=== PATIENT | male | born 1995 | race Caucasian/White ===

== ENCOUNTER 2024-12-25 08:53 | Outpatient (REF) | payer OTHER, SELFPAY ==
[2024-12-25 13:51] LABS: MANUAL DIFF FLAG NO
[2024-12-25 14:00] LABS: Hematocrit 41.4 % (42.0-52.0); Hemoglobin 13.9 g/dl (14.0-18.0); Imm Gran Abs Auto 0.02 X10*3/uL (0.00-0.03); Imm Gran Pct Auto 0.4 % (0.0-0.4); Lymphocytes Absolute Auto 2.1 X10*3/uL (1.2-4.9); Mean Corpuscular HGB Conc 33.6 g/dl (31.0-36.0); Mean Corpuscular Hemoglobin 27.9 pg (27.0-33.0); Mean Corpuscular Volume 83.1 fL (80.0-98.0); NRBC Abs Auto 0.000 X10*3/uL (0.0-0.012); NRBC Pct Auto 0.0 /100WBC (0.0-0.2); Platelet Count 236 X10*3/uL (160-400); Red Blood Count 4.98 X10*6/uL (4.60-5.80); White Blood Count 4.6 X10*3/uL (4.8-10.8)
[2024-12-25 14:31] LABS: Alanine Aminotransferase 173 U/L (0-40); Albumin Level 4.6 g/dL (3.5-5.0); Alkaline Phosphatase 74 U/L (39-117); Anion Gap 11 (12-20); Aspartate Amino Transferase 73 U/L (5-37); Blood Urea Nitrogen 15 mg/dL (9-16); Calcium 9.3 mg/dL (8.4-10.2); Carbon Dioxide 28 mmol/L (22-29); Chloride 105 mmol/L (96-108); Cholesterol 197 mg/dL (<200); Estimated Glomerular Filt Rate > 60; HDL Cholesterol 39 mg/dL (>40); Magnesium 2.3 mg/dL (1.6-2.6); Potassium 4.2 mmol/L (3.3-5.1); Sodium 140 mmol/L (135-145); Total Protein 7.2 g/dL (6.5-8.0); Triglycerides 138 mg/dL (<150)
[2024-12-26 04:40] LABS: HBS Num1 1.92 mIU/mL (0-7.99); HBsAGNum1 0.44 S/CO (0.00-0.99); HIV Num 1 0.07 S/CO (0.00-0.99); Hepatitis B Surface Antigen Negative (Negative); ~HepC Num1 0.16 S/CO (0.00-0.79); ~Hepatitis B Surface Antibody NONREACTIVE (Nonreactive); ~Hepatitis C Antibody Nonreactive (Nonreactive)
[2024-12-31 15:38] LABS: VITAMIN D (1,25 OH) D3 44 pg/mL; Vit D (1,25-Dihydroxy) Total 44 pg/mL (18-72); Vitamin D (1,25 OH) D2 <8 pg/mL
== END 2024-12-25 08:54 | disposition home or self-care (01) ==
LOC: HO.HKASLDS 08:53
PROVIDERS: Visit Provider Student in an Organized Health Care Education/Training Program
DX: Z11.4 Encounter for screening for human immunodeficiency virus [HIV] (principal); G25.81 Restless legs syndrome; K21.9 Gastro-esophageal reflux disease without esophagitis; G43.019 Migraine without aura, intractable, without status migrainosus; L30.9 Dermatitis, unspecified
CPT/HCPCS: 36415; 80053; 80061; 82652; 83036; 83735; 84443; 85025; 86706; 86803; 87340; 87389; 99202

== ENCOUNTER 2024-12-25 08:53 | Outpatient (AMB) | payer OTHER, SELFPAY ==
--- NOTE | 2024-12-25 09:03 | MHC.PC.OV ---
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 Policy Cancellation Clerk Required: No Accompanied by: self Allergies No Known Allergies Allergy (Verified 12/25/24 09:04) Tobacco use date assessed: 12/25/24 Dental Screening Dental Screen Date: 12/25/24 Did you have a dental visit in the last 12 months?: Yes Did you have a dental problem in the last 6 months where you did not have access to dental care?: No Was dental information given to patient?: Patient has dentist HPI HPI Comments History of Present Illness Details History of Present Illness The patient is a 29-year-old male presenting with the need to establish care and address medication refills for ongoing health issues. Restless Leg Syndrome: - The patient has a history of Restless Leg Syndrome for which he takes ropinirole 0.25 mg, initially prescribed by his previous primary care physician. - The medication has been effective in managing symptoms, but he requires a prescription refill as he cannot obtain it online or through local clinics without a primary care consultation. Gastroesophageal Reflux Disease (GERD): - The patient experiences heartburn, a condition that runs in his family, and manages it with omeprazole 20 mg. - He requires a prescription refill for omeprazole to continue managing his symptoms effectively. Migraine: - The patient reports a family history of migraines and experiences them himself, sometimes daily, which he currently manages with Excedrin. - He is concerned about the long-term use of Excedrin and has been advised to maintain a migraine journal to identify triggers and patterns. Dermatitis of the Penis: - The patient reports irritation on the penis for the past two to three months, characterized by redness, dryness, and itchiness, which improves with lotion but never fully resolves. - He has not tried antifungal treatments and is concerned about the persistent nature of the condition. Review of Systems - Neurological: Reports migraines, sometimes daily. Denies other neurological symptoms. - Gastrointestinal: Reports heartburn. Denies other gastrointestinal symptoms. - Genitourinary: Reports irritation on the penis with redness, dryness, and itchiness. 10-point ROS reviewed and negative except as noted in HPI Past Medical History - Restless Leg Syndrome, managed with ropinirole. - Gastroesophageal Reflux Disease (GERD), managed with omeprazole. - Migraine, managed with Excedrin. Health Maintenance - Advised to maintain a migraine journal to identify triggers and patterns. - Recommended lab tests to assess overall health, including blood counts, liver and kidney function, lipid profile, and vitamin levels. Physical Exam General: Well-appearing, in no acute distress. Vital signs: Within normal limits. HEENT: Normocephalic, atraumatic. PERRLA, EOMI. Conjunctiva clear, sclera anicteric. Oropharynx clear, mucous membranes moist. TMs intact bilaterally. Neck: Supple, no lymphadenopathy, no thyromegaly, no JVD or carotid bruits. Cardiovascular: RRR, normal S1/S2, no murmurs, rubs, or gallops. Peripheral pulses 2+ and symmetric. No edema. Respiratory: Lungs clear to auscultation bilaterally, no wheezes, rales, or rhonchi. Normal effort. Abdomen: Soft, non-tender, non-distended. Normoactive bowel sounds. No hepatosplenomegaly, no masses. MSK: Full range of motion, no joint swelling or deformity. Normal gait. Skin: Warm, dry, intact. No rashes, lesions, or pallor. Neuro: Alert and oriented x3. Cranial nerves II-XII intact. Strength 5/5 throughout. Sensation intact. Reflexes 2+ symmetric. Normal coordination and gait. Psych: Appropriate mood and affect. Normal judgment and insight. Plan 1. Restless Leg Syndrome - Refill prescription for ropinirole 0.25 mg for management of Restless Leg Syndrome. 2. Gastroesophageal Reflux Disease (Gerd) - Refill prescription for omeprazole 20 mg for management of GERD. 3. Migraine - Prescribe ibuprofen 800 mg for migraine management and advise against excessive use to prevent gastrointestinal and renal issues. - Recommend maintaining a migraine journal to identify triggers and patterns. 4. Dermatitis Of The Penis - Prescribe a topical steroid cream to be applied twice daily for seven days and advise against intercourse during treatment. - Plan to reassess the condition upon follow-up after lab results are available. Discussion Notes During the consultation, I discussed the patient's ongoing management of Restless Leg Syndrome with ropinirole and GERD with omeprazole, ensuring prescription refills were provided. We addressed the patient's migraines, recommending ibuprofen 800 mg and the maintenance of a migraine journal to identify triggers. For the dermatitis of the penis, I prescribed a topical steroid cream and advised against intercourse during treatment. I also ordered comprehensive lab tests to assess overall health and plan to review these results during the follow-up visit. Patient was informed and verbally consented to the use of an ambient scribe for clinic note documentation during this visit. Patient Instructions - Take ropinirole as prescribed for Restless Leg Syndrome. - Take omeprazole as prescribed for GERD. - Use ibuprofen 800 mg as needed for migraines, but avoid excessive use. - Apply the prescribed steroid cream to the affected area twice daily for seven days. - Avoid intercourse while using the steroid cream. - Maintain a migraine journal to track triggers and patterns. - Follow up for lab results and reassessment of dermatitis. Total time spent caring for the patient today was 30 minutes. This includes time spent before the visit reviewing the chart, time spent documenting, and time spent reviewing laboratory results, diagnostic imaging, medications, performing a medically ?necessary evaluation, counseling on diagnoses, care coordination, ordering appropriate tests, ordering appropriate medications. [facility] Family History (Updated 12/25/24 @ 09:05 by Zander Ibrahim MA) Father Acute migraine Mother Diabetes type 2 Social History (Updated 12/25/24 @ 09:06 by Zander Ibrahim MA) Housing: House Alcohol intake: current Alcohol intake frequency: holidays/special occasions only Patient Tobacco Use Status: Never used Tobacco service: No Current occupational status: employed Cognitive needs: No Hearing needs: No Vision needs: No Questionnaire PHQ-9 Over the last 2 weeks, how often have you been bothered by any of the following problems? 1. Little interest or pleasure in doing things: not at all 2. Feeling down, depressed, or hopeless: not at all 3. Trouble falling or staying asleep, or sleeping too much: not at all 4. Feeling tired or having little energy: not at all 5. Poor appetite or overeating: not at all 6. Feeling bad about yourself - or that you are a failure or have let yourself or your family down: not at all 7. Trouble concentrating on things, such as reading the newspaper or watching television: not at all 8. Moving or speaking so slowly that other people could have noticed. Or the opposite - being so fidgety or restless that you have been moving around a lot more than usual: not at all 9. Thoughts that you would be better off or of hurting yourself in some way: not at all Total score: 0 Source: Developed by Drs. Roel Sanchez, Corina Muir, Pino Finley and colleagues, with an educational mercedes from [employer]. Thrive Questionnaire I am a: Patient What is your living situation today?: I have a steady place to live Within the past 12 months, did the food you bought not last and you didn't have the money to get more?: Never true Within the past 12 months, did you worry whether your food would run out before you got money to buy more?: Never true Do you have trouble paying for medicines?: No Do you have trouble getting transportation to medical appointments?: No Do you have trouble paying your heating and electricity bill?: No Do you have trouble taking care of your child, family member or friend?: No Are you currently unemployed and looking for a job?: No Are you interested in more education?: No Please select the resources that you would like help with: None Currently or been in a relationship where the following occur: No concerns reported THRIVE Score: 0 AUDIT C Alcohol Use Questionnaire (AUDIT-C) 1. How often do you have a drink containing alcohol?: Monthly or less 2. How many drinks containing alcohol do you have on a typical day when you are drinking?: 1 or 2 3. How often do you have six or more drinks on one occasion?: Never Total Score: 1 DEBBIE-7 AMB Questionnaire DEBBIE-7 Feeling nervous, anxious, or on edge: 0 = Not at all Not being able to stop or control worryin = Not at all Worrying too much about different things: 0 = Not at all Trouble relaxin = Not at all Being so restless that it is hard to sit still: 0 = Not at all Becoming easily annoyed or irritable: 0 = Not at all Feeling afraid as if something awful might happen: 0 = Not at all Total DEBBIE-7 score (0-4 normal; 5-9 mild; 10-14 moderate; 15-21 severe): 0 Source: Developed by Drs. Roel Sanchez, Corina Muir, Pino Finley and colleagues, with an educational mercedes from [employer]. Physical exam (Primary Care) Vital Signs: Last Vital Signs Temp 97.8 F 12/25/24 09:07 Pulse 81 12/25/24 09:07 Resp 16 12/25/24 09:07 BP 110/59 L 12/25/24 09:07 Pulse Ox 96 12/25/24 09:07 Oxygen Delivery Method Room Air 12/25/24 09:07 BMI result Body Mass Index 21.3 Tobacco/Smoking Status: Tobacco use Status Tobacco use date assessed 12/25/24 12/25/24 09:11 Patient Tobacco Use Status Never used Tobacco 12/25/24 09:11 PHQ-9: PHQ-9 Score PHQ-9: Total score 0 12/25/24 09:41 Currently or been in a relationship where the following occur: No concerns reported Coding Level of Care Code New Pt Level 4 (16960) Diagnoses Restless leg syndrome G25.81 Gastroesophageal reflux disease without esophagitis K21.9 Esophagitis presence: without esophagitis Intractable migraine without aura and without status migrainosus G43.019 Migraine type: migraine (< 15 days per month) without aura Status migrainosus presence: without status migrainosus Intractability: intractable Dermatitis L30.9 Assessment & Plan Assessment & Plan (1) Restless leg syndrome: Code(s): G25.81 - Restless legs syndrome (2) GERD (gastroesophageal reflux disease): Code(s): K21.9 - Gastro-esophageal reflux disease without esophagitis Qualifiers: Esophagitis presence: without esophagitis Qualified Code(s): K21.9 - Gastro-esophageal reflux disease without esophagitis (3) Migraine: Code(s): G43.909 - Migraine, unspecified, not intractable, without status migrainosus Qualifiers: Migraine type: migraine (< 15 days per month) without aura Status migrainosus presence: without status migrainosus Intractability: intractable Qualified Code(s): G43.019 - Migraine without aura, intractable, without status migrainosus (4) Dermatitis: Code(s): L30.9 - Dermatitis, unspecified Plan Orders: Orders Comprehensive Met. Panel Today Z13.9 - Encounter for screening, unspecified Hemoglobin A1c Today Z13.9 - Encounter for screening, unspecified Hepatitis B Surface Antibody Today Z13. - Encounter for screening, unspecified Hepatitis B Surface Antigen Today Z13. - Encounter for screening, unspecified Hepatitis C Antibody Today Z13. - Encounter for screening, unspecified Lipid Panel Today Z13.9 - Encounter for screening, unspecified TSH reflex Free T4 Today Z13. - Encounter for screening, unspecified Complete Blood Count Auto Diff Today Z13. - Encounter for screening, unspecified HIV Ab/Ag Today Z13. - Encounter for screening, unspecified Magnesium Today Z13. - Encounter for screening, unspecified UA CC w/rflx Micro + Cult Today Z13. - Encounter for screening, unspecified Vitamin D 1,25 dihydroxy Today Z13. - Encounter for screening, unspecified Medications: New ibuprofen 800 mg PO Q8H 30 tabs 0RF triamcinolone acetonide 0.1% 1 appl topical BID 80 grams 0RF ropinirole 0.25 mg PO BEDTIME 90 tabs 0RF omeprazole 20 mg PO DAILY 90 caps 0RF
[2024-12-25 09:07] VITALS: BP 110/59; PULSE 81; RESP 16; TEMP 36.6; O2SAT 96; BMI 21.3
--- OUTSIDE RECORDS SUMMARY | 2024-12-25 09:20 | XMS_ITS ---
Author Name Interface, [id number] lity Address [address] [place] [address] [facility] [place] Address [address] [place] [address] Allergies and Adverse Reactions Medication/Group Name Reaction Severity Date No known allergies Plan Date Type Value 09/15/2024 APPOINTMENT Annual Exam/Phys ical 30 05/22/2024 APPOINTMENT Annual Exam/Phys ical 30 12/24/2023 APPOINTMENT Acute 15 12/24/2023 APPOINTMENT General Office V isit 12/24/2023 APPOINTMENT Lab 12/24/2023 LABORDER X-ray chest, PA & lateral 12/24/2023 LABORDER Hgb A1c 12/24/2023 LABORDER Iron, TIBC, Ferr itin panel 12/24/2023 LABORDER Vitamin D 12/24/2023 LABORDER Magnesium, mg/dL 12/24/2023 LABORDER Basic Metabolic Panel 12/24/2023 LABORDER Folate, serum 12/24/2023 LABORDER TSH w/ reflex to free T4 12/24/2023 LABORDER Lipid panel 12/24/2023 LABORDER Vitamin B12 12/24/2023 LABORDER Hepatic function panel 12/24/2023 LABORDER CBC w/ auto diff Reason for Visit Annual Exam/Physical 30 Encounters Date Name 12/24/2023 Adult health examina tion (procedure) 12/24/2023 Chest pain 12/24/2023 Encounter for immuni zation 12/24/2023 GERD 12/24/2023 Low back pain Immunizations Date Name Route Dose Instructions Refusal Reason Stat us Flu vaccine - Adult Diagnostic Results Date Type Test Units Lower Limit Upper Limit Result Flag Comments Status Ordered By Specimen Source Lab Address 12/23 Vitam in B12 panel Vitam in B12 pg/mL 200.0 1100.0 [address] FINAL Roberth [facility], [address] [place] [address] Luis Mijares MD 12/23 Folat e, serum ng/mL 18.4 [place]lo[place] l Reference Range Low: <3.4 Borderlin e: 3.4-5.4 Normal: >5.4 FINAL Rober[facility], [address] [place] [address] Luis Mijares MD 12/23 TSH w/ refle x to free T4 TSH, mIU/L mIU/L 0.4 4.5 2.06 [place] FINAL [facility], [address] [place] [address] Luis Mijares MD 12/23 Magne sium, mg/dL mg/dL 1.5 2.5 2.1 Slo[place] l FINAL Roberth [facility], [address] [place] Luis Mijares MD 12/23 Vitam in D, 25-hy droxy ng/mL 30.0 100.0 19 Low Vitamin D Status 25-OH Vitamin D:Deficie ncy: <20 ng/mLInsu fficiency : 20 - 29 ng/mLOpti mal: >or = 30 ng/mLFor 25-OH Vitamin D testing on patients onD2-supp lementati on and patients for whom quantitat ionof D2 and D3 fractions is required, the [facility] reD(TM)25 -OH VIT D, (D2,D3), LC/MS/MS is recommend ed: ordercode 97186 (patients >2yrs).Se e Note 1Note 1For additiona l informati on, please refer tohttp:// education .Orgger/faq/F AQ199(Thi s link is being provided for informati onal/educ ational purposes only.) FINAL [facility], [address] [place] [address] Luis Mijares MD 12/23 Xenia stero l mg/dL 226 High FINAL [facility]th [place] [facility], [address] [place] [address] Luis Mijares MD 12/23 HDL xenia stero l mg/dL 59 [address] FINAL Roberth [facility], [address] [place] [address] Luis Mijares MD 12/23 Trigl yceri rogerio mg/dL 72 [address] FINAL [facility], [address] [place] [address] Luis Mijares MD 12/23 LDL xenia stero l, calcu lated mg/dL( calc) 150 High Reference range: <100Desir able range <100 mg/dL for primary preventio n;<70 mg/dL for patients with CHD or diabetic patientsw ith >or = 2 CHD risk factors.L DL-C is now calculate d using the Rhys-Adam pkinscalc ulation, which is a validated novel method providing better accuracy than the Friedewal d equation in theestima tion of LDL-C.Mar fanny SS et al. JAYSON. 2013;310( 19): 8476-2201 (http://e ducation. [facility] nost[facility].c om/faq/FA Q164) FINAL Roberth [place] [facility], [address] [place] [address] Luis Mijares MD 12/23 Xenia stero l/HDL ratio (calc) 3.8 Sloane l FINAL [facility], [address] [place] [address] Luis Mijares MD 12/23 Non-H DL xenia stero l mg/dL( calc) 167 High For patients with diabetes plus 1 major ASCVD riskfacto r, treating to a non-HDL-C goal of <100 mg/dL(LDL -C of <70 mg/dL) is considere d a therapeut icoption. FINAL [facility], [address] [place] [address] Luis Mijares MD 12/23 Iron / FE mcg/dL 50.0 195.0 89 [address] l FINAL Rober[facility] [place] [facility], [address] [place] [address] Luis Mijares MD 12/23 TIBC mcg/dL (calc) 250.0 425.0 428 High FINAL [facility], [address] [place] [address] Luis Mijares MD 12/23 Iron, % satur ation %(calc ) 20.0 48.0 21 [address]lo[address] l FINAL Roberth [place] [facility], [address] [place] [address] Luis Mijares MD 12/23 Shantel tin ng/mL 38.0 380.0 20 Low FINAL [facility], [address] [place] [address] Luis Mijares MD 12/23 Fall risk asses sment (proc edure ) 0 falls reporte d [facility] 12/23 Album in g/dL 3.4 5.0 4.5 FINAL [facility], [address] [place] [address] [place] [address] 12/23 Bilir ubin, direc t mg/dL 0.0 0.2 0.10 FINAL [facility], [address] [place] [address] [place] [address] 12/23 Alkal ine phosp hatas e U/L 46.0 116.0 46 FINAL [facility], [address] [place] [address] [place] [address] 12/23 Total prote in g/dL 6.4 8.2 7.5 FINAL [facility], [address] [place] [address] [place] [address] 12/23 Globu jamal g/dL 1.5 4.5 3.0 FINAL [facility], [address] [place] [address] 12/23 A/G ratio Ratio 0.8 2.7 1.5 FINAL [facility], [address] [place] [address] 12/23 ALT/S GPT 12.0 78.0 25 FINAL [facility], [address] [place] [address] [place] [address] 12/23 AST/S GOT U/L 15.0 37.0 14 Low FINAL [facility], [address] [place] [address] 12/23 Bilir ubin, total mg/dL 0.2 1.0 0.50 FINAL [facility], [address] [place] [address] [place] [address] 12/23 Sodiu m mmol/L 135.0 146.0 141 FINAL [facility], [address] [place] [address] [place] [address] 12/23 Potas sium mmol/L 3.5 5.3 4.1 FINAL [facility], [address] [place] [address] [place] [address] 12/23 Chlor chloe mmol/L 98.0 110.0 102 FINAL [facility], [address] [place] [address] [place] [address] 12/23 CO2 mmol/L 21.0 32.0 32.0 FINAL [facility], [address] [place] [address] [place] [address] 12/23 Gluco se, serum mg/dL 74.0 106.0 92 The ADA recommend s the following criteria for fasting glucose:N ormal < 100 mg/dlPred iabetes 100 - 125 mg/dlDiab etes >125 mg/dl FINAL [facility], [address] [place] [address] [place] [address] 12/23 BUN mg/dl 7.0 18.0 13 FINAL [facility], [address] [place] [address] [place] [address] 12/23 Creat inine mg/dl 0.55 1.3 0.87 FINAL [facility], [address] [place] [address] [place] [address] 12/23 BUN/C reati nine ratio 0.0 20.0 14.9 FINAL [facility], [address] [place] [address] [place] [address] 12/23 GFR estim ate mL/min /1.73m 2 60.0 999.0 121 The eGFR is based on the CKD-EPI 2020 equation. FINAL [facility], [address] [place] [address] [place] [address] 12/23 Calci um mg/dl 8.5 10.1 9.7 FINAL [facility], [address] [place] [address] [place] [address] 12/23 Anion gap, mmol/ L mmol/L 7.0 22.0 11.1 FINAL [facility], [address] [place] [address] [place] [address] 12/23 Hgb A1c % 4.0 5.6 5.5 The ADA recommend s the following criteria: Normal < 5.7%Predi abetes 5.7% - 6.4%Diabe liz >6.4% FINAL [facility], [address] [place] [address] [place] [address] 12/23 WBC 10x3/u L 4.0 11.0 5.0 FINAL [facility], [address] [place] [address] [place] [address] 12/23 RBC 10x6uL 4.2 5.6 5.21 FINAL [facility], [address] [place] [address] [place] [address] 12/23 HGB g/dL 14.0 17.0 14.5 FINAL [facility], [address] [place] [address] [place] [address] 12/23 HCT % 40.0 50.0 43.4 FINAL [facility] Medical [facility] st[facility], [address] [place] [address] [place] [address] 12/23 MCV fL 80.0 100.0 83.3 FINAL [facility], [address] [place] [address] [place] [address] 12/23 MCH pg 25.0 33.0 27.8 FINAL [facility], [address] [place] [address] [place] [address] 12/23 MCHC g/dL 29.0 36.0 33.4 FINAL [facility], [address] [place] [address] [place] [address] 12/23 RDW % 11.0 15.0 12.4 FINAL [facility], [address] [place] [address] [place] [address] 12/23 PLT 10x3/u L 130.0 500.0 229 FINAL [facility], [address] [place] [address] [place] [address] 12/23 MPV fL 7.4 10.4 9.8 FINAL [facility], [address] [place] [address] [place] [address] 12/23 Artur % % 51.0 75.0 55.7 FINAL [facility], [address] [place] [address] [place] [address] 12/23 LY % % 20.0 45.0 31.9 FINAL [facility], [address] [place] [address] [place] [address] 12/23 MO % % 0.0 10.0 8.4 FINAL [facility], [address] [place] [address] [place] [address] 12/23 EO % % 0.0 4.0 2.6 FINAL [facility], [address] [place] [address] [place] [address] 12/23 BA % % 0.0 3.0 1.0 FINAL [facility], [address] [place] [address] [place] [address] 12/23 Artur # (ANC) 10x3/u L 1.8 7.7 2.8 FINAL [facility], [address] [place] [address] [place] [address] 12/23 LY # 10x3/u L 1.0 5.0 1.6 FINAL [facility], [address] [place] [address] [place] [address] 12/23 MO # 10x3/u L 0.0 0.8 0.4 FINAL [facility], [address] [place] [address] [place] [address] 12/23 EO # 10x3/u L 0.0 0.2 0.1 FINAL [facility], [address] [place] [address] [place] [address] 12/23 BA # 10x3/u L 0.0 0.2 0.1 FINAL [facility], [address] [place] [address] [place] [address] 12/23 CXR [facility], Caleb55 [address]DOB : [birth year] Roberth Shabazz MD Uns igned transcr iptions represe nt a prelimi nary report and do not reflect a medical or legal documen t 4: Chest PA and Lateral EXAMINA TION:Ch est PA and Lateral CLINICA L INDICAT ION:Mal e, 28 years old. [id number] MPARISO N:None. FINDING S:Suppo rt Devices : None.He art: Cardiac silhoue tte is normal in size.Me diastin um: Mediast inal contour s are normal. Lungs: Pulmona ry vessels are normal in size. Lungs are well aerated and clear.P leura: No pleural effusio n is identif ied. No pneumot horax is present .Osseou s Structu res: Visuali zed skeleto n is normal. IMPRESS ION:No acute cardiop ulmonar y finding s.Elect ronical ly signed by: Stephania balderrama DO 024 04:10 PM CDT RP Worksta tion: [id number] NEDBYDT : 4 4:13 PM FINAL Roberth Hagen Medications Date Name Route Dose Frequency Instructions Start Date End Date Status Fill Status Indication 11/09 ropinirol e 0.25 MG Oral Tablet 2024 active 10/20 omeprazol e 20 MG Delayed Release Oral Capsule 2024 active 08/11 ropinirol e 0.25 MG Oral Tablet 2024 active 08/11 ropinirol e 0.25 MG Oral Tablet 2024 active 06/08 ropinirol e 0.25 MG Oral Tablet 2024 active 04/27 ropinirol e 0.25 MG Oral Tablet 2024 active 03/31 ropinirol e 0.25 MG Oral Tablet 2024 active 01/30 cholecalc iferol 0.05 MG Oral Capsule orally 50.0 mcg every week 2023 active 12/25 cholecalc iferol 0.05 MG Oral Capsule orally 50.0 mcg every week 2023 active 10/17 omeprazol e 20 MG Delayed Release Oral Capsule 2023 active GERD 09/09 omeprazol e 20 MG Delayed Release Oral Capsule 2023 active Problems Diagnosis Status Date of Diagnosis Resolution Date Adult health examination (procedure) Active GERD Active Restless leg syndrome Active Low back pain Active Chest pain Active Encounter for immunization Active Vital Signs Date Type Value 12/24/2023 Body Temperature 97.40 12/24/2023 Heart Beat 65.00 12/24/2023 Respiratory Rate 18.00 12/24/2023 Oxygen Saturation 98.00 12/24/2023 BSA 2.21 12/24/2023 Pain Scale 0.00 12/24/2023 Weight 196.60 12/24/2023 Height 78.00 12/24/2023 BMI 22.72 12/24/2023 Intravascular Systolic 120 12/24/2023 Intravascular Diastolic 68 Notes Section * Nurse Note for: 24-DEC-23 [facility] Nurse Note Print Location: Unknown Date/Time Printed: 12/25/2024 08:20 AM ([facility]) Patient: Benjamin Martinez Sex: Male : 1995 Date of Service: 12/24/2023 Allergies : No Known Allergies Vital Signs : Time: 08:10 AM. Weight: 196.6 lb (89.18 kg). Height: 78 (in) . BMI: 22.72 (kg/m2) . BSA: 2.21 (m2) . Temperature: 97.4 (F) . Pulse: 65 (/min) . Respirations: 18 (/min) . Blood pressure: 120/68 (mm Hg). Pain Scale: 0. O2 Saturation: 98 (%) . Entered by Roberth Hagen MD 12/24/2023 08:11 AM Patient Assessment : Negative results Assessment : Denies Pain -0-No pain. Medication Administration : Incident to: Roberth Hagen MD Other Non-Regimen Orders Fluarix (PF) (Influenza Virus Vaccine (PF) IM Tri-Split (6 months & older)), 45 mcg (15 mcg x 3)/0.5 mL syringe, 0.5 mL intramuscularly once, Instructions: as a single dose. , Allow Substitution GIVEN: 45 mcg (15 mcg x 3)/0.5 mL 0.5 mL Pharmacy plan: Dose Form Description: 45 mcg (15 mcg x 3)/0.5 mL syringe Dispense/Waste: 0.5/0 mL Pharmacy dispense: [facility]: [id number] Dispense/Waste: 0.5/0 mL Given Dose/Discard: 0.5/0 mL Admin Details: Injection Location: Right-Upper Arm, Vaccine lot #: [id number], Comments: MARY Time: 08:26 AM
--- OUTSIDE RECORDS SUMMARY | 2024-12-25 09:20 | XMS_ITS | CCD ---
Author Name Interface, [id number] [facility] Address [address] [place] [address] [facility], RACHEAL Address [address] [place] [address] Care Team Providers Care Growth Hacker Name Role Phone Xiao BARBOZA, Robetrh Unavailable Unavailable Richard Westbrook MD, Mickey Wiley Unavaila ble Allergies and Adverse Reactions Care Plan Reason for Visit Medications Problems Procedures Social History
--- OUTSIDE RECORDS SUMMARY | 2024-12-25 09:20 | XMS_ITS | Patient Health Record ---
Author Organization [facility] Physician Godwin frost Billing Info Address [address] [place], [place] [address] Care Team Providers Care Contact Lens Assistant Name Role Phone GIULIA ALBRECHT Primary Care Provider Allergies No Known Allergies Reason For Referral No Information Social History Tobacco Use: Social History Observation Description Date Details (start date - stop date) Never Smoker NA - NA Tobacco Status: Question Answer Notes Patient is a never smoker Problems No Known Problems Plan Of Treatment Pending Test Test Name Order Date TSH ([facility]) 08/29/2021 Complete Metabolic Panel ([facility]) 08/29 Complete Blood Count ([facility]) 2 Insurance Providers Payer Name Payer Address Payer Phone Subscriber Number Group Number Insured Name Patient Relationship to Insured Coverage Start Date Coverage End Date [facility] [address] [place], [place] [id number] [phone] [id number] Benjamin Martinez Self - patient is the insured 2 Medical (General) History Surgical History Surgery Date(Month/Year)
== END 2024-12-25 09:45 | disposition home or self-care (01) ==
LOC: HO.HMCFMS 08:54
PROVIDERS: PCP Student in an Organized Health Care Education/Training Program; Visit Provider Student in an Organized Health Care Education/Training Program
DX: G25.81 Restless legs syndrome (principal); K21.9 Gastro-esophageal reflux disease without esophagitis; G43.019 Migraine without aura, intractable, without status migrainosus; L30.9 Dermatitis, unspecified

== ENCOUNTER 2025-01-14 09:27 | Outpatient (REF) | payer OTHER, SELFPAY ==
[2025-01-14 13:14] LABS: Appearance Urine Clear; Glucose Urine UA Negative (Negative); PH 7.5 (5.0-9.0); Specific Gravity - Urine <= 1.005 (1.005-1.025)
== END 2025-01-14 09:28 | disposition home or self-care (01) ==
LOC: HO.HKASLDS 09:27
PROVIDERS: PCP Student in an Organized Health Care Education/Training Program; Visit Provider Student in an Organized Health Care Education/Training Program
DX: Z13.9 Encounter for screening, unspecified (principal); R74.8 Abnormal levels of other serum enzymes; E78.5 Hyperlipidemia, unspecified; D64.9 Anemia, unspecified; D72.819 Decreased white blood cell count, unspecified
CPT/HCPCS: 81003; 99212

== ENCOUNTER 2025-01-14 09:27 | Outpatient (AMB) | payer OTHER, SELFPAY ==
[2025-01-14 09:38] VITALS: BP 125/59; PULSE 74; RESP 16; TEMP 36.6; O2SAT 99; BMI 21.3
--- NOTE | 2025-01-14 09:38 | A.OFFPC_ITS ---
Vital Signs 01/14/25 09:38 Height 6 ft 5.95 in Weight 184 lb 6 oz BMI 21.3 BP 125/59 L Blood Pressure Location Rt brachial Position Sitting Respiration 16 Pulse 74 Pulse Source Pulse Oximeter Temp 97.9 F Temp Source Oral Pulse Oximetry (%) 99 Oxygen Delivery Method Room Air Intake Visit Reasons: 2 wk f/u - pt asks for this date / time Senior Information Security Consultant Required: No Accompanied by: self Allergies No Known Allergies Allergy (Verified 01/14/25 09:38) Tobacco use date assessed: 01/14/25 Dental Screening Dental Screen Date: 01/14/25 Did you have a dental visit in the last 12 months?: Yes Did you have a dental problem in the last 6 months where you did not have access to dental care?: No Was dental information given to patient?: Patient has dentist HPI HPI Comments History of Present Illness Details Consent Patient was informed and verbally consented to the use of an ambient scribe for clinic note documentation during this visit. History of Present Illness The patient is a 29-year-old male presenting with a routine follow-up and review of laboratory results. Low white blood cell count and red white blood cell The patient's white blood cell count was noted to be slightly low at 4.6, but he is asymptomatic, and no immediate concerns were raised. The plan is to monitor and repeat the test in six months. Elevated liver function tests: The patient has elevated liver function tests, which may be related to hyperlipidemia. An ultrasound of the liver has been ordered to rule out structural issues. Hyperlipidemia: The patient's LDL cholesterol is elevated at 131 mg/dL, and HDL cholesterol is slightly low at 39 mg/dL. Lifestyle modifications and a referral to a market development manager have been recommended. Vitamin D sufficiency: The patient's vitamin D level is within the normal range at 44, and no supplementation is required. Social History: - Family status: - Nutritional intake: High cheese consum ption noted Diagnostic Results: - Labs: White blood cell count at 4.6 (l ow) - Labs: Hemoglobin at 13.9, Hematocrit a t 41.4 - Labs: Elevated liver function tests - Labs: LDL cholesterol at 131 mg/dL, HD L cholesterol at 39 mg/dL - Labs: Vitamin D level at 44 Review of Systems 10-point ROS reviewed and negative excep t as noted in HPI Past Medical History Health Maintenance - Routine follow-up for laboratory resul ts - Referral to market development manager for dietary jeff kelley Physical Exam General: Well-appearing, in no acute distress. Vital signs: Within normal limits. HEENT: Normocephalic, atraumatic. PERRLA, EOMI. Conjunctiva clear, sclera anicteric. Oropharynx clear, mucous membranes moist. TMs intact bilaterally. Neck: Supple, no lymphadenopathy, no thyromegaly, no JVD or carotid bruits. Cardiovascular: RRR, normal S1/S2, no murmurs, rubs, or gallops. Peripheral pulses 2+ and symmetric. No edema. Respiratory: Lungs clear to auscultation bilaterally, no wheezes, rales, or rhonchi. Normal effort. Abdomen: Soft, non-tender, non-distended. Normoactive bowel sounds. No hepatosplenomegaly, no masses. MSK: Full range of motion, no joint swelling or deformity. Normal gait. Skin: Warm, dry, intact. No rashes, lesions, or pallor. Neuro: Alert and oriented x3. Cranial nerves II-XII intact. Strength 5/5 throughout. Sensation intact. Reflexes 2+ symmetric. Normal coordination and gait. Psych: Appropriate mood and affect. Normal judgment and insight. Plan 1. Low White Blood Cell Count - Plan to monitor and repeat CBC in six months. 2. Elevated Liver Function Tests - Order liver ultrasound to rule out str uctural issues. 3. Hyperlipidemia - Recommend lifestyle modifications and referral to market development manager. 4. Vitamin D Sufficiency - No supplementation required, continue current regimen. Discussion Notes I discussed with the patient the findings of his lab results, including the low white blood cell count and elevated liver function tests. We agreed to monitor the white blood cell count and repeat it in six months. I explained the need for a liver ultrasound to rule out structural issues due to elevated liver enzymes. We also discussed the importance of lifestyle modifications to manage hyperli pidemia, and I provided a referral to a market development manager. The patient was informed that his vitamin D levels are sufficient, and no additional supplementation is necessary. Patient Instructions - Monitor white blood cell count and rep eat test in six months. - Await scheduling for liver ultrasound and follow up if not contacted within two weeks. - Follow dietary recommendations from marybeth berman to manage cholesterol levels. - Continue current vitamin D regimen wit hout additional supplementation. Medical Decision Making The patient's lab results indicate a low white blood cell count and elevated liver function tests. Given the absence of symptoms, the decision was made to monitor the white blood cell count and repeat it in six months. The elevated liver enzymes, potentially linked to hyperlipidemia, warrant an ultrasound to exclude structural liver issues. Lifestyle modifications are advised to address hyperlipidemia, and a market development manager referral was provided. The patient's vitamin D levels are adequate, requiring no further supplementation. Total time spent caring for the patient today was 30 minutes. This includes time spent before the visit reviewing the chart, time spent documenting, and time spent reviewing laboratory results, diagnostic imaging, medications, performing a medically necessary evaluation, counseling on diagnoses, care coordination. [facility] Medical History (Updated 01/14/25 @ 09:35 by Tunde Thibodeaux MD) Hyperlipidemia Elevated liver enzymes Family History (Updated 12/25/24 @ 09:05 by Zander Ibrahim MA) Father Acute migraine Mother Diabetes type 2 Social History (Updated 12/25/24 @ 09:06 by Zander Ibrahim MA) Housing: House Alcohol intake: current Alcohol intake frequency: holidays/special occasions only Patient Tobacco Use Status: Never used Tobacco service: No Current occupational status: employed Cognitive needs: No Hearing needs: No Vision needs: No Questionnaire Thrive Questionnaire Date Thrive assessed: 12/25/24 I am a: Patient What is your living situation today?: I have a steady place to live Within the past 12 months, did the food you bought not last and you didn't have the money to get more?: Never true Within the past 12 months, did you worry whether your food would run out before you got money to buy more?: Never true Do you have trouble paying for medicines?: No Do you have trouble getting transportation to medical appointments?: No Do you have trouble paying your heating and electricity bill?: No Do you have trouble taking care of your child, family member or friend?: No Are you currently unemployed and looking for a job?: No Are you interested in more education?: No Please select the resources that you would like help with: None Currently or been in a relationship where the following occur: No concerns reported THRIVE Score: 0 Physical exam (Primary Care) Tobacco/Smoking Status: Tobacco use Status Tobacco use date assessed 10/03/25 10/03/25 09:11 Patient Tobacco Use Status Never used Tobacco 12/25/24 09:11 Thrive Assessment: Date of Thrive Assessment Date Thrive assessed 12/25/24 01/14/25 09:28 Currently or been in a relationship where the following occur: No concerns reported Coding Level of Care Code Est Pt Level 4 (61695) Diagnoses Hyperlipidemia E78.5 Elevated liver enzymes R74.8 Mild anemia D64.9 Leukopenia D72.819 Assessment & Plan Assessment & Plan (1) Hyperlipidemia: Code(s): E78.5 - Hyperlipidemia, unspecified Category: Medical (2) Elevated liver enzymes: Code(s): R74.8 - Abnormal levels of other serum enzymes Category: Medical (3) Mild anemia: Code(s): D64.9 - Anemia, unspecified (4) Leukopenia: Code(s): D72.819 - Decreased white blood cell count, unspecified Plan Orders: Orders US abdomen limited Today E78.5 - Hyperlipidemia, unspecified, R74.8 - Abnormal levels of other serum enzymes Referrals Nurse Navigator Referral E78.5 - Hyperlipidemia, unspecified, R74.8 - Abnormal levels of other serum enzymes
== END 2025-01-14 09:52 | disposition home or self-care (01) ==
LOC: HO.HMCFMS 09:28
PROVIDERS: Visit Provider Student in an Organized Health Care Education/Training Program
DX: E78.5 Hyperlipidemia, unspecified (principal); R74.8 Abnormal levels of other serum enzymes; D64.9 Anemia, unspecified; D72.819 Decreased white blood cell count, unspecified